=== PATIENT | female | born 1985 | race Caucasian/White ===

== ENCOUNTER 2018-04-01 08:39 | Inpatient (IN) | payer MEDICAID ==
[2018-04-01 09:51] LABS: ADD MAN DIFF? NO
[2018-04-01 09:59] LABS: WHITE BLOOD COUNT 14.6 10^3/ul (4.8-10.8)
[2018-04-01 09:59] LABS: BASOPHILS % 0.3 % (0.0-2.0); EOSINOPHILS # 0.1 10^3/ul (0.0-0.5); EOSINOPHILS % 0.8 % (0.0-7.0); HEMATOCRIT 35.1 % (37.0-47.0); HEMOGLOBIN 11.9 g/dl (12.0-16.0); LYMPHOCYTES % 13.7 % (15.0-51.0); MEAN CORPUSCULAR HEMOGLOBIN 31.1 pg (29.0-33.0); MEAN CORPUSCULAR HGB CONC 33.9 g/dl (32.0-37.0); MEAN CORPUSCULAR VOLUME 91.6 fl (82.0-101.0); MEAN PLATELET VOLUME 10.7 fl (7.4-10.4); MONOCYTE # 0.7 10^3/ul (0.3-0.9); MONOCYTES % 4.8 % (0.0-11.0); NEUTROPHIL # 11.7 10^3/ul (1.6-7.5); NEUTROPHILS % 79.6 % (39.0-77.0); PLATELET COUNT 178 10^3/UL (140-415); RED BLOOD COUNT 3.83 10^6/ul (4.20-5.40); RED CELL DISTRIBUTION WIDTH 13.2 % (11.5-14.5)
[2018-04-01 10:13] LABS: ALANINE AMINOTRANSFERASE 22 IU/L (13-69); ALBUMIN 3.6 g/dl (3.3-4.9); ALBUMIN/GLOBULIN RATIO 1.02; ALKALINE PHOSPHATASE 148 IU/L (42-121); AMYLASE 66 U/L (11-123); ANION GAP 9 (5-13); ASPARTATE AMINO TRANSFERASE 19 IU/L (15-46); BILIRUBIN,INDIRECT 0.3 mg/dl (0-1.1); BILIRUBIN,TOTAL 0.3 mg/dl (0.2-1.3); BLOOD UREA NITROGEN 4 mg/dl (7-20); CALCIUM 9.1 mg/dl (8.4-10.2); CARBON DIOXIDE 22 mmol/L (21-31); CHLORIDE 106 mmol/L (97-110); CREATININE 0.51 mg/dl (0.44-1.00); Estimated GFR > 60 mL/min (>60); GLUCOSE 86 mg/dl (70-220); LIPASE 19 U/L (23-300); POTASSIUM 3.4 mmol/L (3.5-5.1); SODIUM 137 mmol/L (135-144); TOTAL PROTEIN 7.1 g/dl (6.1-8.1)
[2018-04-01 10:25] LABS: ADD UMIC NO; UR ASCORBIC ACID NEGATIVE (NEGATIVE); UR BILIRUBIN (Dip) NEGATIVE (NEGATIVE); UR BLOOD (Dip) NEGATIVE (NEGATIVE); UR CLARITY SLIGHTLY CLOUDY (CLEAR); UR COLOR YELLOW (YELLOW); UR GLUCOSE (Dip) NEGATIVE (NEGATIVE); UR KETONES (Dip) NEGATIVE (NEGATIVE); UR LEUKOCYTE ESTERASE (Dip) NEGATIVE Leu/ul (NEGATIVE); UR NITRITE (Dip) NEGATIVE (NEGATIVE); UR RBC 1 /HPF (0-5); UR SPECIFIC GRAVITY (Dip) 1.017 (1.003-1.030); UR SQUAMOUS EPITHELIAL CELL FEW /HPF (FEW); UR TOTAL PROTEIN (Dip) NEGATIVE (NEGATIVE); UR UROBILINOGEN (Dip) NEGATIVE (NEGATIVE); UR WBC 2 /HPF (0-5)
[2018-04-01] MEDS: LACTATED RINGER'S 1,000 ML IV ×2 (12:05→14:38)
[2018-04-01] MEDS: BUTORPHANOL 2 MG INJ IV ×2 (12:09→17:18)
[2018-04-01] MEDS: TERBUTALINE 1 MG/ML INJ SC (18:04)
[2018-04-01] MEDS ORDERED: DEXAMETHASONE 4 MG/ML 5 ML INJ IM (20:00)
[2018-04-01] MEDS: DEXAMETHASONE 4 MG/ML 5 ML INJ IM (20:33)
[2018-04-01 20:37] LABS: WHITE BLOOD COUNT 20.8 10^3/ul (4.8-10.8)
[2018-04-01 20:37] LABS: ADD MAN DIFF? NO; BASOPHIL # 0.1 10^3/ul (0.0-0.1); BASOPHILS % 0.3 % (0.0-2.0); HEMATOCRIT 34.4 % (37.0-47.0); HEMOGLOBIN 11.6 g/dl (12.0-16.0); LYMPHOCYTES # 1.5 10^3/ul (0.8-2.9); LYMPHOCYTES % 7.4 % (15.0-51.0); MEAN CORPUSCULAR HEMOGLOBIN 30.8 pg (29.0-33.0); MEAN CORPUSCULAR HGB CONC 33.7 g/dl (32.0-37.0); MEAN CORPUSCULAR VOLUME 91.2 fl (82.0-101.0); MEAN PLATELET VOLUME 10.5 fl (7.4-10.4); MONOCYTE # 1.3 10^3/ul (0.3-0.9); MONOCYTES % 6.4 % (0.0-11.0); NEUTROPHIL # 17.7 10^3/ul (1.6-7.5); PLATELET COUNT 199 10^3/UL (140-415); RED BLOOD COUNT 3.77 10^6/ul (4.20-5.40); RED CELL DISTRIBUTION WIDTH 13.2 % (11.5-14.5)
[2018-04-01] MEDS ORDERED: MIDAZOLAM 1 MG/ML 2 ML INJ (21:36)
[2018-04-01] MEDS ORDERED: SUCCINYLCHOLINE CHLORIDE 100 MG/5 ML SYG IV (21:36)
[2018-04-01] MEDS ORDERED: PROPOFOL 20 ML (21:36)
[2018-04-01] MEDS ORDERED: PHENYLephrine (100 MCG/ML) 10ML SYG (21:48)
[2018-04-01] MEDS ORDERED: BUPIVACAINE 0.5%/EPI (SDV) 30 ML INJ (21:51)
[2018-04-01] MEDS: BUPIVACAINE 0.25% (MPF) 30 ML INJ (22:01)
[2018-04-01] MEDS ORDERED: CLINDAMYCIN 600 MG/D5W (PMX) 50 ML IVPB (22:57)
[2018-04-01] MEDS ORDERED: ATROPINE 1 MG/10 ML SYRINGE (22:57)
[2018-04-01] MEDS ORDERED: NEOSTIGMINE 3 MG/3 ML SYRINGE (22:57)
[2018-04-01] MEDS ORDERED: ONDANSETRON 4 MG INJ (23:00)
[2018-04-01] MEDS: MAGNESIUM SULFATE 20 GM/500 ML 500 ML IV (23:49)
[2018-04-02] MEDS ORDERED: ONDANSETRON 4 MG INJ IV
[2018-04-02] MEDS: CLINDAMYCIN 600 MG/D5W (PMX) 50 ML IVPB ×5 (00:10→23:15)
[2018-04-02] MEDS: KETOROLAC 30 MG INJ IV (00:21)
[2018-04-02] MEDS: HYDROmorphONE 1 MG/5 ML IV SYRINGE IV (01:00)
[2018-04-02] MEDS: DEXAMETHASONE 4 MG/ML 5 ML INJ IM ×4 (02:47→21:54)
[2018-04-02] MEDS: LACTATED RINGER'S 1,000 ML IV ×3 (02:56→23:15)
[2018-04-02] MEDS: MAGNESIUM SULFATE 20 GM/500 ML 500 ML IV ×3 (04:15→23:22)
[2018-04-02] MEDS: HYDROmorphONE 0.5 MG/0.5 ML SYG IV (04:55)
[2018-04-02 06:06] LABS: ADD MAN DIFF? NO
[2018-04-02 06:11] LABS: WHITE BLOOD COUNT 20.5 10^3/ul (4.8-10.8)
[2018-04-02 06:11] LABS: BASOPHILS % 0.1 % (0.0-2.0); HEMATOCRIT 33.1 % (37.0-47.0); HEMOGLOBIN 11.2 g/dl (12.0-16.0); LYMPHOCYTES # 1.3 10^3/ul (0.8-2.9); LYMPHOCYTES % 6.3 % (15.0-51.0); MEAN CORPUSCULAR HGB CONC 33.8 g/dl (32.0-37.0); MEAN CORPUSCULAR VOLUME 91.7 fl (82.0-101.0); MEAN PLATELET VOLUME 10.9 fl (7.4-10.4); MONOCYTE # 0.3 10^3/ul (0.3-0.9); MONOCYTES % 1.5 % (0.0-11.0); NEUTROPHIL # 18.7 10^3/ul (1.6-7.5); PLATELET COUNT 191 10^3/UL (140-415); RED BLOOD COUNT 3.61 10^6/ul (4.20-5.40); RED CELL DISTRIBUTION WIDTH 13.5 % (11.5-14.5)
[2018-04-02 06:26] LABS: NEUTROPHILS % 91.2 % (39.0-77.0)
[2018-04-02 06:48] LABS: MAGNESIUM 3.8 mg/dl (1.7-2.5)
[2018-04-02] MEDS: FAMOTIDINE 20 MG INJ IV ×2 (09:42→21:54)
[2018-04-02 12:46] LABS: MAGNESIUM 4.5 mg/dl (1.7-2.5)
[2018-04-02] MEDS: BUTORPHANOL 2 MG INJ IV (15:53)
[2018-04-02 19:35] LABS: MAGNESIUM 4.9 mg/dl (1.7-2.5)
[2018-04-02] MEDS: ACETAMINOPHEN 325 MG TAB PO (23:57)
[2018-04-02] MEDS: HYDROCODONE/APAP (5/325) TAB PO (23:57)
[2018-04-03] MEDS: HYDROmorphONE 0.5 MG/0.5 ML SYG IV (00:53)
[2018-04-03] MEDS: LACTATED RINGER'S 1,000 ML IV ×3 (03:15→19:15)
[2018-04-03] MEDS: CLINDAMYCIN 600 MG/D5W (PMX) 50 ML IVPB ×4 (06:00→23:53)
[2018-04-03 07:29] LABS: MAGNESIUM 5.2 mg/dl (1.7-2.5)
[2018-04-03] MEDS: HYDROCODONE/APAP (5/325) TAB PO ×3 (08:13→23:08)
[2018-04-03] MEDS: FAMOTIDINE 20 MG INJ IV ×2 (08:14→21:39)
[2018-04-03 10:47] LABS: ADD MAN DIFF? NO
[2018-04-03 10:49] LABS: WHITE BLOOD COUNT 18.5 10^3/ul (4.8-10.8)
[2018-04-03 10:49] LABS: BASOPHILS % 0.2 % (0.0-2.0); EOSINOPHILS % 0.1 % (0.0-7.0); HEMOGLOBIN 10.1 g/dl (12.0-16.0); LYMPHOCYTES # 2.1 10^3/ul (0.8-2.9); LYMPHOCYTES % 11.2 % (15.0-51.0); MEAN CORPUSCULAR HEMOGLOBIN 31.3 pg (29.0-33.0); MEAN CORPUSCULAR HGB CONC 33.7 g/dl (32.0-37.0); MEAN CORPUSCULAR VOLUME 92.9 fl (82.0-101.0); MEAN PLATELET VOLUME 10.2 fl (7.4-10.4); MONOCYTE # 0.9 10^3/ul (0.3-0.9); MONOCYTES % 4.9 % (0.0-11.0); NEUTROPHIL # 15.2 10^3/ul (1.6-7.5); NEUTROPHILS % 82.4 % (39.0-77.0); PLATELET COUNT 198 10^3/UL (140-415); RED BLOOD COUNT 3.23 10^6/ul (4.20-5.40); RED CELL DISTRIBUTION WIDTH 13.9 % (11.5-14.5)
[2018-04-04] MEDS: LACTATED RINGER'S 1,000 ML IV (03:45)
[2018-04-04] MEDS: CLINDAMYCIN 600 MG/D5W (PMX) 50 ML IVPB (05:58)
[2018-04-04] MEDS: FAMOTIDINE 20 MG INJ IV (09:27)
[2018-04-04 10:15] LABS: ADD MAN DIFF? NO
[2018-04-04 10:18] LABS: BASOPHILS % 0.3 % (0.0-2.0); EOSINOPHILS # 0.1 10^3/ul (0.0-0.5); EOSINOPHILS % 1.1 % (0.0-7.0); HEMATOCRIT 32.8 % (37.0-47.0); HEMOGLOBIN 10.9 g/dl (12.0-16.0); LYMPHOCYTES # 3.8 10^3/ul (0.8-2.9); LYMPHOCYTES % 36.1 % (15.0-51.0); MEAN CORPUSCULAR HEMOGLOBIN 30.8 pg (29.0-33.0); MEAN CORPUSCULAR HGB CONC 33.2 g/dl (32.0-37.0); MEAN CORPUSCULAR VOLUME 92.7 fl (82.0-101.0); MEAN PLATELET VOLUME 10.3 fl (7.4-10.4); MONOCYTE # 0.6 10^3/ul (0.3-0.9); MONOCYTES % 5.3 % (0.0-11.0); NEUTROPHILS % 56.4 % (39.0-77.0); PLATELET COUNT 219 10^3/UL (140-415); RED BLOOD COUNT 3.54 10^6/ul (4.20-5.40); RED CELL DISTRIBUTION WIDTH 13.8 % (11.5-14.5)
[2018-04-04 10:18] LABS: WHITE BLOOD COUNT 10.6 10^3/ul (4.8-10.8)
== END 2018-04-04 12:00 | disposition home or self-care (01) | DRG 817 ==
LOC: OBT 08:39 → L-D 04-02 01:17 → OBT 11:21 → L-D 04-02 18:14 → PP1 11:20
PROC: 0DTJ4ZZ Resection of Appendix, Percutaneous Endoscopic Approach (ICD-10-PCS; principal; 2018-04-01 21:30)
DX: O99.613 Diseases of the digestive system complicating pregnancy, third trimester (principal); K35.32 Acute appendicitis with perforation, localized peritonitis, and gangrene, without abscess; Z3A.35 35 weeks gestation of pregnancy
CPT/HCPCS: 74183; 76705; 76818; 80053; 81001; 81003; 82150; 83690; 83735; 85025; 87070; 88304

== ENCOUNTER 2018-05-03 09:31 | Inpatient (IN) | payer MEDICAID ==
[2018-05-03] MEDS ORDERED: MISOPROSTOL 200 MCG TAB PR ×2 (10:00→16:30)
[2018-05-03] MEDS ORDERED: LIDOCAINE 1% (MPF) 30 ML INJ INJ (10:00)
[2018-05-03] MEDS ORDERED: METHYLERGONOVINE 0.2 MG INJ IM ×2 (10:00→16:30)
[2018-05-03] MEDS ORDERED: OXYTOCIN 30 UNITS/LR 500 ML IV ×2 (10:00→16:30)
[2018-05-03] MEDS ORDERED: BUTORPHANOL 1 MG INJ IV (10:00)
[2018-05-03] MEDS ORDERED: CARBOPROST 250 MCG INJ IM ×2 (10:00→16:30)
[2018-05-03 10:39] LABS: ADD MAN DIFF? NO
[2018-05-03] MEDS: LACTATED RINGER'S 1,000 ML IV (10:39)
[2018-05-03 10:43] LABS: BASOPHILS % 0.4 % (0.0-2.0); EOSINOPHILS # 0.1 10^3/ul (0.0-0.5); EOSINOPHILS % 1.1 % (0.0-7.0); HEMATOCRIT 37.5 % (37.0-47.0); HEMOGLOBIN 12.8 g/dl (12.0-16.0); LYMPHOCYTES # 2.3 10^3/ul (0.8-2.9); LYMPHOCYTES % 22.2 % (15.0-51.0); MEAN CORPUSCULAR HEMOGLOBIN 30.5 pg (29.0-33.0); MEAN CORPUSCULAR HGB CONC 34.1 g/dl (32.0-37.0); MEAN CORPUSCULAR VOLUME 89.5 fl (82.0-101.0); MEAN PLATELET VOLUME 10.7 fl (7.4-10.4); MONOCYTE # 0.6 10^3/ul (0.3-0.9); MONOCYTES % 5.5 % (0.0-11.0); NEUTROPHIL # 7.3 10^3/ul (1.6-7.5); NEUTROPHILS % 70.1 % (39.0-77.0); PLATELET COUNT 171 10^3/UL (140-415); RED BLOOD COUNT 4.19 10^6/ul (4.20-5.40); RED CELL DISTRIBUTION WIDTH 13.9 % (11.5-14.5)
[2018-05-03 10:43] LABS: WHITE BLOOD COUNT 10.4 10^3/ul (4.8-10.8)
[2018-05-03 11:12] LABS: INR 0.85; PARTIAL THROMBOPLASTIN TIME 26.1 Sec (23.0-35.0); PROTIME 11.7 Sec (11.9-14.9); PT RATIO 0.9
[2018-05-03] MEDS: BUTORPHANOL 2 MG INJ IV (11:51)
[2018-05-03 12:53] LABS: HEPATITIS B SURFACE ANTIGEN NEGATIVE (NEGATIVE)
[2018-05-03] MEDS: OXYTOCIN 30 UNITS/LR 500 ML IV ×2 (14:36→15:14)
[2018-05-03] MEDS: IBUPROFEN 600 MG TAB PO ×2 (15:32→18:00)
[2018-05-03 16:16] LABS: RAPID PLASMA REAGIN NONREACTIVE (NR)
[2018-05-03] MEDS ORDERED: OXYCODONE/ASPIRIN (4.88/325) TAB PO (16:30)
[2018-05-03] MEDS ORDERED: ZOLPIDEM 5 MG TAB PO (16:30)
[2018-05-03] MEDS: WITCH HAZEL/GLYCERIN PAD PR (17:17)
[2018-05-03] MEDS: BENZOCAINE 20% 56 ML SPRAY TOP (17:17)
[2018-05-03] MEDS: LANOLIN HPA 1 PKT TOP (17:17)
[2018-05-03] MEDS: OXYCODONE/ASPIRIN (4.88/325) TAB PO (20:00)
[2018-05-03] MEDS: SENNA/DOCUSATE NA (8.6MG/50MG) TAB PO (21:17)
[2018-05-04] MEDS: IBUPROFEN 600 MG TAB PO ×5 (00:06→23:16)
[2018-05-04 06:52] LABS: ADD MAN DIFF? NO
[2018-05-04 06:57] LABS: BASOPHILS % 0.3 % (0.0-2.0); EOSINOPHILS # 0.1 10^3/ul (0.0-0.5); EOSINOPHILS % 0.9 % (0.0-7.0); HEMATOCRIT 33.7 % (37.0-47.0); HEMOGLOBIN 11.4 g/dl (12.0-16.0); LYMPHOCYTES # 3.1 10^3/ul (0.8-2.9); LYMPHOCYTES % 22.2 % (15.0-51.0); MEAN CORPUSCULAR HEMOGLOBIN 30.4 pg (29.0-33.0); MEAN CORPUSCULAR HGB CONC 33.8 g/dl (32.0-37.0); MEAN CORPUSCULAR VOLUME 89.9 fl (82.0-101.0); MEAN PLATELET VOLUME 10.8 fl (7.4-10.4); MONOCYTES % 7.3 % (0.0-11.0); NEUTROPHIL # 9.7 10^3/ul (1.6-7.5); NEUTROPHILS % 68.7 % (39.0-77.0); PLATELET COUNT 187 10^3/UL (140-415); RED BLOOD COUNT 3.75 10^6/ul (4.20-5.40); RED CELL DISTRIBUTION WIDTH 13.8 % (11.5-14.5)
[2018-05-04] MEDS: SENNA/DOCUSATE NA (8.6MG/50MG) TAB PO ×2 (09:10→21:05)
[2018-05-04] MEDS: OXYCODONE/ASPIRIN (4.88/325) TAB PO (10:57)
[2018-05-05] MEDS: IBUPROFEN 600 MG TAB PO ×2 (05:16→11:38)
[2018-05-05] MEDS: OXYCODONE/ASPIRIN (4.88/325) TAB PO (05:17)
[2018-05-05] MEDS: DIPHTH/TET/ACEL PERTUSS (ADULT) 0.5 ML VIAL IM* ×2 (07:16→11:22)
[2018-05-05] MEDS: SENNA/DOCUSATE NA (8.6MG/50MG) TAB PO (08:36)
[2018-05-05] MEDS ORDERED: MISOPROSTOL 200 MCG TAB PR (11:30)
[2018-05-05] MEDS ORDERED: LANOLIN HPA 1 PKT TOP (11:30)
[2018-05-05] MEDS ORDERED: METHYLERGONOVINE 0.2 MG INJ IM (11:30)
[2018-05-05] MEDS ORDERED: OXYCODONE/ASPIRIN (4.88/325) TAB PO ×2 (11:30)
[2018-05-05] MEDS ORDERED: OXYTOCIN 30 UNITS/LR 500 ML IV (11:30)
[2018-05-05] MEDS ORDERED: BENZOCAINE 20% 56 ML SPRAY TOP (11:30)
[2018-05-05] MEDS ORDERED: CARBOPROST 250 MCG INJ IM (11:30)
[2018-05-05] MEDS ORDERED: ZOLPIDEM 5 MG TAB PO (11:30)
[2018-05-05] MEDS ORDERED: WITCH HAZEL/GLYCERIN PAD PR (11:30)
[2018-05-05 11:33] LABS: ADD MAN DIFF? NO
[2018-05-05 11:34] LABS: BASOPHILS % 0.2 % (0.0-2.0); EOSINOPHILS # 0.1 10^3/ul (0.0-0.5); EOSINOPHILS % 1.1 % (0.0-7.0); HEMATOCRIT 36.1 % (37.0-47.0); HEMOGLOBIN 12.1 g/dl (12.0-16.0); LYMPHOCYTES # 2.5 10^3/ul (0.8-2.9); LYMPHOCYTES % 19.9 % (15.0-51.0); MEAN CORPUSCULAR HEMOGLOBIN 30.6 pg (29.0-33.0); MEAN CORPUSCULAR HGB CONC 33.5 g/dl (32.0-37.0); MEAN CORPUSCULAR VOLUME 91.4 fl (82.0-101.0); MONOCYTE # 0.8 10^3/ul (0.3-0.9); MONOCYTES % 6.6 % (0.0-11.0); NEUTROPHIL # 8.9 10^3/ul (1.6-7.5); NEUTROPHILS % 71.7 % (39.0-77.0); PLATELET COUNT 204 10^3/UL (140-415); RED BLOOD COUNT 3.95 10^6/ul (4.20-5.40)
[2018-05-05 11:34] LABS: WHITE BLOOD COUNT 12.3 10^3/ul (4.8-10.8)
[2018-05-05] MEDS ORDERED: SENNA/DOCUSATE NA (8.6MG/50MG) TAB PO (21:00)
== END 2018-05-05 13:33 | disposition home or self-care (01) | DRG 807 ==
LOC: OBT 09:31 → L-D 09:31 → OBT 09:40 → L-D 09:40 → PP1 16:02
PROVIDERS: Obstetrics & Gynecology
PROC: 10E0XZZ Delivery of Products of Conception, External Approach (ICD-10-PCS; principal; 2018-05-03)
PROC: 0HQ9XZZ Repair Perineum Skin, External Approach (ICD-10-PCS; 2018-05-03)
PROC: 4A1HXCZ Monitoring of Products of Conception, Cardiac Rate, External Approach (ICD-10-PCS; 2018-05-03)
DX: O70.0 First degree perineal laceration during delivery (principal); Z37.0 Single live birth; Z3A.39 39 weeks gestation of pregnancy; Z90.49 Acquired absence of other specified parts of digestive tract
CPT/HCPCS: 85025; 85610; 85730; 86592; 86850; 86900; 86901; 87340; 99464